=== PATIENT | female | born 1955 | race Caucasian/White ===

== ENCOUNTER → 2017-05-14 | Outpatient (CLI) | payer OTHER ==
[~2017-05-14] MED LIST: LISINOPRIL10 MG PO; PREMARIN0.3 MG PO
== END ==
LOC: MC.RAD 09:30
DX: Z12.31 Encounter for screening mammogram for malignant neoplasm of breast (principal)

== ENCOUNTER → 2018-07-22 | Outpatient (CLI) | payer OTHER | LOC: MC.RAD 07:56 | DX: Z12.31 Encounter for screening mammogram for malignant neoplasm of breast (principal) ==

== ENCOUNTER 2018-10-28 06:34 | Day surgery (SDC) | payer OTHER ==
[~2018-10-28] VITALS: Ht 165.1 cm; Wt 86.3 kg
[2018-10-28] MEDS ORDERED: ATORVASTATIN CALCIUM (06:50)
[2018-10-28] MEDS ORDERED: OMEGA-3 1000 MG1 CAP PO (06:52)
[2018-10-28] MEDS ORDERED: ASPIRIN E.C. 8181 MG PO (06:53)
[2018-10-28 07:08] VITALS: BP 131/90; PULSE 80; TEMP 96.1
[2018-10-28 08:05] VITALS: BP 129/82; PULSE 64; TEMP 97.6
--- NOTE | 2018-10-28 08:05 | NUR ---
Pt to [facility] via cart from [facility]. Pt drowsy, but awake. Pt ambulates to recliner with stand by assistance. Pt denies pain or nausea. Apple juice given. in room. Will continue to monitor. Call light within reach.
[2018-10-28 08:15] VITALS: BP 127/77; PULSE 56
--- NOTE | 2018-10-28 08:15 | NUR ---
Pt continues to rest. Denies pain or nausea. Tolerating fluids without diffiuclties. Call light within reach.
[2018-10-28 08:30] VITALS: BP 127/76; PULSE 53
--- NOTE | 2018-10-28 08:30 | NUR ---
Discharge instructions reviewed. Pt voices understanding. IV site discontinued with all parts intact. Pt up to dress. Call light within reach.
--- NOTE | 2018-10-28 08:40 | NUR ---
Pt escorted to private car via wheel chair. Pt accompanied home by her .
== END 2018-10-28 08:40 | disposition home or self-care (01) ==
LOC: SDCO 06:34
DX: Z12.11 Encounter for screening for malignant neoplasm of colon (principal); D12.0 Benign neoplasm of cecum; K62.89 Other specified diseases of anus and rectum; K57.30 Diverticulosis of large intestine without perforation or abscess without bleeding; Z86.010 Personal history of colon polyps; Z86.012 Personal history of benign carcinoid tumor
CPT/HCPCS: J2250; J3010

== ENCOUNTER → 2019-09-01 | Outpatient (CLI) | payer OTHER ==
[~2019-09-01] MED LIST changes: +ASPIRIN E.C. 8181 MG PO; +ATORVASTATIN CALCIUM; +OMEGA-3 1000 MG1 CAP PO
== END ==
LOC: MC.RAD 12:45
DX: Z12.31 Encounter for screening mammogram for malignant neoplasm of breast (principal)

== ENCOUNTER → 2020-05-30 | Outpatient (CLI) | payer BC | LOC: COL.RAD 14:14 | DX: N13.2 Hydronephrosis with renal and ureteral calculous obstruction (principal); K57.30 Diverticulosis of large intestine without perforation or abscess without bleeding; K76.0 Fatty (change of) liver, not elsewhere classified; Z90.710 Acquired absence of both cervix and uterus | CPT/HCPCS: Q9967 ==

== ENCOUNTER → 2020-09-13 | Outpatient (CLI) | payer BC | LOC: MC.RAD 08-30 08:30 | DX: Z12.31 Encounter for screening mammogram for malignant neoplasm of breast (principal) ==

== ENCOUNTER → 2021-10-31 | Outpatient (CLI) | payer MEDICARE | LOC: MC.RAD 10-02 10:15 | DX: Z12.31 Encounter for screening mammogram for malignant neoplasm of breast (principal) ==

== ENCOUNTER 2023-07-28 02:14 | Emergency (ER) | payer MEDICARE, OTHER ==
[~2023-07-28] VITALS: Ht 165.1 cm; Wt 71.8 kg
[~2023-07-28 02:14] MED LIST changes: +CRESTOR20 MG PO; +FISH OIL 1000MG1 CAP PO; +GLUCOPHAGE XR500 M1 PO; +MASON NATURAL2000 IU PO; +ZESTRIL 10MG10 MG PO
[2023-07-28 02:22] VITALS: BP 140/68; TEMP 98.2
[2023-07-28] MEDS ORDERED: NS 1,000 ML IV ONE (02:45)
[2023-07-28] MEDS ORDERED: Morphine 4 MG/ML VIAL IV PRN (02:45)
[2023-07-28] MEDS ORDERED: Ondansetron 4 MG/2 ML VIAL IV PRN (02:45)
[2023-07-28 02:54] LABS: BASO # 0.1 K/mm3 (0.0-0.2); BASO % 0.5 % (0.0-2.0); EOS % 0.4 % (0.0-4.0); GRAN % 81.5 % (42.2-75.2); HEMATOCRIT 37.5 % (37.0-47.0); HEMOGLOBIN 12.2 g/dl (12.5-16.0); LYMPH # 0.9 K/mm3 (1.2-3.4); LYMPH % 7.7 % (20.0-51.0); MEAN CELL VOLUME 93 fl (80.0-100.0); MEAN CORPUSCULAR HEMOGLOBIN 30 pg (27-31); MEAN CORPUSCULAR HGB CONC 33 g/dl (33.0-37.0); MEAN PLATELET VOLUME 9.7 fl (7.4-10.4); MONO # 1.1 K/mm3 (0.1-0.6); MONO % 9.5 % (1.7-9.3); PLATELET COUNT 324 K/mm3 (130-400); RED BLOOD COUNT 4.03 M/mm3 (4.10-5.30); REDCELL DISTRIBUTION WIDTH-CV 12.7 % (11.5-14.5)
[2023-07-28 03:13] LABS: URINE APPEARANCE CLEAR (CLEAR/HAZY); URINE BLOOD NEGATIVE (NEGATIVE); URINE COLOR YELLOW (YELLOW); URINE GLUCOSE 2+ (NEGATIVE); URINE KETONE 2+ (NEGATIVE); URINE NITRATE NEGATIVE (NEGATIVE); URINE PROTEIN(semi-quant) NEGATIVE (NEGATIVE); URINE UROBILINOGEN 0.2 E.U/dL (0.2-1.0)
[2023-07-28] MEDS ORDERED: Ketorolac 15 MG/ML VIAL IV ONE (03:15)
[2023-07-28 03:17] LABS: ALBUMIN 3.4 g/dL (3.4-4.8); BILIRUBIN,TOTAL 0.5 mg/dL (0.2-1.2); CALCIUM 8.7 mg/dL (8.4-10.2); CREATININE, serum 1.38 mg/dL (0.57-1.11); POTASSIUM 3.8 mEq/L (3.5-4.5); TOTAL PROTEIN 6.8 g/dl (6.2-8.1)
[2023-07-28] MEDS ORDERED: Iohexol 300 - 100 ML VIAL IV ONE (03:24)
[2023-07-28] MEDS ORDERED: NS 50 ML IV SCH (03:24)
[2023-07-28 03:32] LABS: COLLECTION METHOD CLEAN CATCH
[2023-07-28] MEDS ORDERED: NORCO 325 MG-51 TAB PO (04:34)
[2023-07-28 04:54] VITALS: PULSE 62
[2023-07-30] MEDS ORDERED: LR 1,000 ML IV SCH (14:15)
[2023-07-30] MEDS ORDERED: VITAMIN D362.5 MC1 PO (16:10)
[2023-07-30] MEDS ORDERED: FOSAMAX 70MG TA70 MG PO (16:10)
== END 2023-07-28 04:54 | disposition home or self-care (01) ==
LOC: COL.ER 02:14
PROVIDERS: Personal Emergency Response Attendant
DX: N13.2 Hydronephrosis with renal and ureteral calculous obstruction (principal); Z98.890 Other specified postprocedural states
CPT/HCPCS: J1885; J2405; J7030; Q9967